=== PATIENT | male | born 1955 | race Caucasian/White ===

== ENCOUNTER → 2017-01-19 | Outpatient (CLI) | payer SELFPAY | END | disposition home or self-care (01) | LOC: MRI 11:15 | PROVIDERS: ATTEND Family Medicine | DX: M25.561 Pain in right knee (principal) ==

== ENCOUNTER → 2017-02-09 | Outpatient (CLI) | payer BC | END | disposition home or self-care (01) | LOC: LAB.O 14:46 | PROVIDERS: ATTEND Urology | DX: R97.20 Elevated prostate specific antigen [PSA] (principal) ==

== ENCOUNTER → 2017-05-10 | Outpatient (CLI) | payer BC | END | disposition home or self-care (01) | LOC: LAB.O 11:34 | PROVIDERS: ATTEND Internal Medicine Gastroenterology | DX: B18.2 Chronic viral hepatitis C (principal) ==

== ENCOUNTER → 2017-09-06 | Outpatient (CLI) | payer BC ==
--- NOTE | 2017-09-06 14:33 | CT ---
EXAM DESCRIPTION: Abdomen/Pelvis w/wo Contrast: Computed Tomography. CLINICAL HISTORY: ABDOMINAL PAIN COMPARISON: None. TECHNIQUE: Spiral-axial scans at 5.0 mm intervals through the abdomen and pelvis before and after standard dose nonionic IV contrast. No oral contrast. Coronal and sagittal 2.0 mm reconstructions. 5 mm Delayed helical-axial scans, liver through the pubic symphysis. No adverse reactions. Total Exam DLP 1960.86 mGy - cm. This exam was performed according to our departmental CT dose-optimization program which includes automated exposure control, adjustment of the mA and/or kV according to patient size and/or use of iterative reconstruction technique; to reduce radiation dose to as low as reasonably achievable (ALARA). FINDINGS: Lung bases and pleura: Negative. Liver, Stomach, Spleen, Adrenal Glands: Unremarkable. Pancreas, Gallbladder, Ducts: Gallbladder visualized. Normal duct. Pancreas negative. Kidneys and Ureters: 3 mm stone inferior right collecting system with no hydronephrosis. No hydronephrosis left kidney or bilateral perinephric edema. No stones in the bilateral ureters or left kidney. Mesentery: No mesenteric stranding or fascial thickening. No free intraperitoneal air and no ascites. Aorta: Minimal to moderate atherosclerotic calcification with some involvement of the ostia of the major branching vessels. Normal caliber of the outer aortic hager. Small Bowel: Normal caliber with minimal fluid and gas. Terminal Ileum/Cecum: Normal caliber. Normal caliber of the appendix and normal density of the surrounding fat. Colon: No distention. Scattered air and fecal matter. Pelvic Organs: Prostate gland calcifications abutting the urinary bladder and the seminal vesicles. No radiodense stones in the bladder. No fluid in the anterior peritoneal reflection. Spine and Bony Pelvis: Unremarkable. Abdominal Wall/Back Soft Tissues: Minimal fat in the proximal left inguinal hernia but no bowel. Subcutaneous adipose tissue shows minimal density which could be secondary to an injection. No mass. IMPRESSION: 1. 3 mm nonobstructing stone in the inferior collecting system of the right kidney without hydronephrosis. No stones in the left kidney are bilateral ureters. No left hydronephrosis. 2. Normal CT appearance of the liver or spleen adrenal glands pancreas. No abdominal or pelvic mass. No free fluid or free air. No inflammatory changes in the mesentery or fascia. 3. Calcifications in the prostate gland borderline enlargement but no significant mass effect on the urinary bladder. Normal CT appearance of the appendix. Moderate atherosclerotic calcification of the aorta. Electronically signed by: Jason Guan MD 09/06/2017 2:32 PM CDT
--- NOTE | 2017-09-06 14:41 | US ---
EXAM DESCRIPTION: Gall Bladder: ULTRASOUND. CLINICAL HISTORY: GENERALIZED ABDOMINAL PAIN COMPARISON: CT scan of abdomen and pelvis on this visit. TECHNIQUE: Transabdominal scannin-dimensional and Doppler modes. FINDINGS: Gallbladder: normal size, shape, echogenicity; no intraluminal stones or sludge. No fluid around the gallbladder. No wall thickening. 1.2 mm. Non-tender with transducer pressure. Common bile duct: caliber 4.2 mm within normal limits. Liver: normal echogenicity; contour liver capsule smooth where seen. No fluid around the liver. Intrahepatic biliary ducts normal caliber. Doppler hepatopedal flow portal vein.. Long axis right lobe 14.9 cm. Pancreas: normal size and echogenicity. Duct not seen. IMPRESSION: Normal ultrasound of the gallbladder, liver, ducts, and pancreas. No ascites. Electronically signed by: Jason Guan MD 09/06/2017 2:40 PM CDT
== END ==
LOC: US 10:04
PROVIDERS: ATTEND Family Medicine
DX: R10.11 Right upper quadrant pain (principal); R10.811 Right upper quadrant abdominal tenderness; N20.0 Calculus of kidney; N42.0 Calculus of prostate; I70.0 Atherosclerosis of aorta

== ENCOUNTER → 2018-03-28 | Outpatient (CLI) | payer BC ==
--- NOTE | 2018-03-29 15:12 | MRI ---
EXAM DESCRIPTION: Pelvis w/o Contrast CLINICAL HISTORY: 62 years Male, M53.3 COMPARISON: None. TECHNIQUE: Noncontrast multiplanar multisequence magnetic resonance imaging of the bilateral SI joints was performed. FINDINGS: Mild symmetric bilateral increased PD and decreased T1 signal is present within the upper posterior aspects of the sacroiliac joints indicating mild inflammatory change. Sacrococcygeal alignment is normal. No sacral or coccygeal fractures are present. No aggressive marrow infiltrating disease is demonstrated. The pelvic ring is intact. The anterior posterior columns of the acetabulum are maintained. No osteonecrosis of the visualized hip joints. Visualized intrapelvic structures are unremarkable in appearance. Visualized structures of the lower lumbar spine are unremarkable. IMPRESSION: Symmetric mild bilateral degenerative sacroiliitis. Normal sacrum and coccyx. Electronically signed by: Juan Draper MD 03/29/2018 3:10 PM CDT
== END ==
LOC: MRI 10:45
PROVIDERS: ATTEND Family Medicine
DX: M53.3 Sacrococcygeal disorders, not elsewhere classified (principal); M46.1 Sacroiliitis, not elsewhere classified

== ENCOUNTER → 2019-09-07 | Outpatient (CLI) | payer BC, OTHER | DX: M19.011 Primary osteoarthritis, right shoulder (principal); S43.431A Superior glenoid labrum lesion of right shoulder, initial encounter; M75.91 Shoulder lesion, unspecified, right shoulder; M24.211 Disorder of ligament, right shoulder; M25.411 Effusion, right shoulder ==

== ENCOUNTER → 2019-09-27 | Outpatient (CLI) | payer OTHER ==
--- NOTE | 2019-09-27 08:21 | RAD ---
EXAM DESCRIPTION: Shoulder,Right FOUR X-RAY Views CLINICAL HISTORY: PAIN COMPARISON: None Available. TECHNIQUE: Four views of the right shoulder. FINDINGS: There is adequate internal and external rotation. Normal alignment on transscapular Y view and transaxillary view. There is no fracture or dislocation. There are no significant degenerative changes observed. AC joint appears intact. No focal bone lesion. IMPRESSION: Negative for fracture or dislocation. Electronically signed by: Gurwinder Cervantes MD 09/27/2019 8:20 AM CDT
== END ==
LOC: RAD 07:51
PROVIDERS: ATTEND Orthopaedic Surgery
DX: M25.511 Pain in right shoulder (principal)